=== PATIENT | male | born 1995 | race Two or more races ===

== ENCOUNTER 2020-01-28 00:54 | Emergency (ER) | payer BC ==
[~2020-01-28] VITALS: Ht 177.8 cm; Wt 77.8 kg
[2020-01-28 00:57] VITALS: BP 123/60
--- NOTE | 2020-01-28 01:03 | NUR ---
PT AMBULATORY TO ROOM, STEADY GAIT.
[2020-01-28] MEDS ORDERED: IBUPROFEN 600 MG TABLET ONE (01:14)
--- NOTE | 2020-01-28 01:15 | NUR ---
PT AMBULATORY TO IMAGING.
[2020-01-28] MEDS ORDERED: IBUPROFEN 600 MG TABLET PO ONE (01:30)
== END 2020-01-28 02:23 | disposition home or self-care (01) ==
LOC: ED 02:00
DX: G89.11 Acute pain due to trauma (principal); M25.531 Pain in right wrist; M25.532 Pain in left wrist; F17.210 Nicotine dependence, cigarettes, uncomplicated; W01.0XXA Fall on same level from slipping, tripping and stumbling without subsequent striking against object, initial encounter; Y93.01 Activity, walking, marching and hiking; Y92.488 Other paved roadways as the place of occurrence of the external cause; Y99.8 Other external cause status
CPT/HCPCS: 29125; 99284

== ENCOUNTER 2020-02-11 18:03 | Emergency (ER) | payer BC ==
[~2020-02-11] VITALS: Ht 172.7 cm; Wt 73.9 kg
[2020-02-11 18:07] VITALS: BP 112/69
--- NOTE | 2020-02-11 19:42 | NUR ---
Pt back to room at this time. Awaiting xr at this time. No immediate needs at this time.
== END 2020-02-11 20:33 | disposition home or self-care (01) ==
LOC: ED 20:03
DX: G89.11 Acute pain due to trauma (principal); M79.641 Pain in right hand; X58.XXXA Exposure to other specified factors, initial encounter; Y93.67 Activity, basketball; Y92.328 Other athletic field as the place of occurrence of the external cause; Y99.8 Other external cause status
CPT/HCPCS: 29125; 99283

== ENCOUNTER 2020-04-02 18:33 | Emergency (ER) | payer BC ==
[~2020-04-02] VITALS: Ht 175.3 cm; Wt 73.9 kg
[2020-04-02] MEDS ORDERED: FLUORESCEIN OPHTHALMIC 1 MG STRIP EACHEYE ONE (19:30)
[2020-04-02] MEDS ORDERED: PROPARACAINE OPHTH 0.5%, 15ML EACHEYE ONE (19:30)
[2020-04-02] MEDS ORDERED: KETOROLAC 30 MG/1 ML IM ONE (19:30)
[2020-04-02] MEDS ORDERED: PROPARACAINE OPHTH 0.5%, 15ML ONE (19:40)
[2020-04-02] MEDS ORDERED: KETOROLAC 30 MG/1 ML ONE (19:40)
[2020-04-02] MEDS ORDERED: FLUORESCEIN OPHTHALMIC 1 MG STRIP ONE (19:40)
--- NOTE | 2020-04-02 19:48 | NUR ---
PATIENT GIVEN IM INJECTION, TOLERATED WELL. AMBULATORY TO XRAY [facility] TECH.
--- NOTE | 2020-04-02 20:36 | NUR ---
PT REFUSED LACER SPLINT, HAS SAME SPLINT AT HOME.
[2020-04-02 20:41] VITALS: BP 121/70
== END 2020-04-02 20:43 | disposition home or self-care (01) ==
LOC: ED 19:03
DX: M77.9 Enthesopathy, unspecified (principal); G89.11 Acute pain due to trauma; M79.621 Pain in right upper arm; M79.631 Pain in right forearm; H57.11 Ocular pain, right eye; Y93.67 Activity, basketball; Y92.89 Other specified places as the place of occurrence of the external cause; Y99.8 Other external cause status
CPT/HCPCS: 29125; 73060; 73090; 96372; 99284; J1885

== ENCOUNTER 2020-06-28 19:45 | Emergency (ER) | payer BC ==
[~2020-06-28] VITALS: Ht 177.8 cm; Wt 74.5 kg
[2020-06-28 20:47] LABS: ALBUMIN 4.1 g/dL (3.4-5.0); ANION GAP 4 mmol/L (5-15); CALCIUM 8.7 mg/dL (8.5-10.1); CHLORIDE 105 mmol/L (98-107); CREATININE 1.07 mg/dL (0.7-1.3)
[2020-06-28 20:56] LABS: MICROSCOPIC INDICATED
[2020-06-28 21:00] LABS: BASOPHILS % (AUTO) 1 % (0-1); MEAN CORPUSCULAR HEMOGLOBIN 30.5 pg (27.5-34.5); PLATELET COUNT 208 x10^3/uL (130-400); RED CELL DISTRIBUTION WIDTH 12.8 % (9.4-14.8)
[2020-06-28 21:08] LABS: EOSINOPHILS % (AUTO) 2 % (1-7); LYMPHOCYTES % (AUTO) 44 % (22-44); MEAN CORPUSCULAR HGB CONC 34.2 g/dL (33.2-36.2); MEAN PLATELET VOLUME 8.6 fL (7.4-10.4); MONOCYTES % (AUTO) 11 % (2-9); NEUTROPHILS % (AUTO) 42 % (42-75); RED BLOOD COUNT 5.52 x10^6/uL (4.38-5.82)
[2020-06-28 21:10] LABS: MD NO
--- NOTE | 2020-06-28 21:59 | NUR ---
pt called to room from lobby
[2020-06-28 22:08] VITALS: BP 116/65
[2020-06-28] MEDS ORDERED: DOXYCYCLINE 100MG TABLET PO ONE (22:30)
[2020-06-28] MEDS ORDERED: CEFTRIAXONE 250 MG IM ONE (22:30)
[2020-06-28] MEDS ORDERED: CEFTRIAXONE 250 MG ONE (22:31)
[2020-06-28] MEDS ORDERED: DOXYCYCLINE 100MG TABLET ONE (22:31)
[2020-06-28] MEDS ORDERED: LIDOCAINE-MPF 1%, 2ML ONE (22:31)
== END 2020-06-28 22:57 | disposition home or self-care (01) ==
LOC: ED 22:30
DX: N45.1 Epididymitis (principal); F17.210 Nicotine dependence, cigarettes, uncomplicated
CPT/HCPCS: 36415; 76870; 80048; 81001; 82040; 85025; 87086; 87491; 87591; 96372; 99284; 99406; J0696